=== PATIENT | female | born 1960 | race Two or more races ===

== ENCOUNTER 2017-04-16 20:29 | Emergency (ER) | payer MEDICARE ==
[~2017-04-16] VITALS: Ht 177.8 cm; Wt 97.3 kg
[2017-04-16 20:30] VITALS: BP 140/83
[2017-04-16] MEDS ORDERED: SPIR12.9 INH (20:52)
[2017-04-16] MEDS ORDERED: EFFE150C PO (20:52)
[2017-04-16] MEDS ORDERED: ADV500INH INH (20:52)
[2017-04-16] MEDS ORDERED: SERO200T PO (20:57)
[2017-04-16] MEDS ORDERED: VALI10TA PO (20:57)
[2017-04-16] MEDS ORDERED: DALI1TAB2 PO (20:57)
[2017-04-16] MEDS ORDERED: PANT40TA2 PO (20:57)
[2017-04-16] MEDS ORDERED: IMIP25TA3 PO (20:57)
[2017-04-16] MEDS ORDERED: SUCR1TA PO (20:57)
[2017-04-16] MEDS ORDERED: MUCI600T37 PO (20:57)
== END 2017-04-16 22:52 | disposition left against medical advice (07) ==
LOC: M ED 20:29
DX: R06.02 Shortness of breath (principal)